=== PATIENT | female | born 1940 | race Caucasian/White ===

== ENCOUNTER → 2016-11-04 | Outpatient (CLI) | payer OTHER ==
[2015-10-30 13:04] VITALS: BP 144/56; PULSE 52
[~2016-11-04] MED LIST: AMLO-114 PO; ANAS1TAB6 PO; ASPI81TA28 PO; ATEN25TA PO; ATEN50TA PO; BND25X PO; MOEX15TA PO; MOEXIPRIL PO; TELM80TA4 PO
[2016-11-04 12:51] VITALS: BP 178/70; PULSE 57; TEMP 36.8; O2SAT 96
--- NOTE | 2016-11-04 14:19 | Radiation Oncology Follow-Up ---
Radiation Oncology Follow-Up Date of Visit Nov 04, 2016. Reason For Visit Annual follow-up Radiation Completion Date APBI - 03/16/15 Diagnosis (1) Malignant neoplasm of upper-outer quadrant of female breast Status: Resolved Onset Date: 10/31/2014 Stage: l (A) Permanent Comment: Abnormal right breast mammogram Status post biopsy 10/31/2014 revealing ductal carcinoma grade 2 Status post partial mastectomy and sentinel lymph node biopsy 11/17/2014 Pathologic stage [id number] Estrogen receptor positive, progesterone receptor negative, HER-2/nicole positive Reexcision 01/05/2015 clear margins After discussion opted against chemotherapy Status post completion of radiation therapy 03/16/2015 received 3850 cGy utilizing accelerated partial breast treatment Last Edited By: Barb Nielson on Apr 26, 2015 15:19 History of Present Illness Ms. Yesenia Mai is a 75 year-old female with a family history of breast cancer. The patient's paternal grandmother had a history of breast cancer as did the patient's aunt and cousin. The patient had been followed with serial screening mammograms. She had a mammogram on 10/07/2004. Her next mammogram was performed after discussion with her family physician on 07/05/2014. This revealed a new lobulated nodule posteriorly in the upper outer aspect of the right breast. Additional imaging studies were recommended. On 07/26/2014 she underwent a targeted ultrasound of the upper outer aspect of the right breast. This showed normal appearing glandular tissue seen throughout the upper outer aspect of the right breast with no evidence of an abnormal nodule. However a short interval follow-up was recommended. Therefore on 10/26/2014 a right diagnostic mammogram was performed. The area of concern in the lateral aspect of the right breast posteriorly at the 10 o'clock position was more conspicuous than on prior examinations. The margins seem more spiculated. The tomosynthesis images confirmed the increased suspicious changes associated with the nodule in the lateral aspect of the right breast. This was given a BI-RADS Category 4, suspicious abnormality and a biopsy was recommended. On 10/31/2014 Dr. Fox performed stereotactic biopsy of the right breast at the 10 o'clock position. 2 tissue samples were obtained. The first biopsy revealed an infiltrative ductal adenocarcinoma grade 2 with no lymphovascular or perineural invasion seen. The second biopsy also revealed an infiltrative ductal adenocarcinoma grade 2 with no lymphovascular or perineural invasion. The estrogen receptors were positive (100%, strong). Progesterone receptors were negative (less than 1% staining). HER-2/nicole overexpression was positive (3 +). This result was positive by FISH analysis. Specimen: [id number]. Case: 15- 1520-S. The patient was seen by Dr. Owen Bauer for evaluation and discussion of the treatment options. After this discussion the patient wished to consider breast conserving therapy. The patient agreed and was planned for surgery on 2014. The patient underwent a sentinel node biopsy and right partial mastectomy. The partial mastectomy specimen confirmed invasive ductal carcinoma Zuri grade 2 out of 3. The tumor measured 0.8 cm on the glass slide. There was no significant amount of DCIS identified. The margins were identified. The invasive ductal carcinoma is present at the superior margin. The invasive carcinoma was greater than 0.5 cm from the remaining margins. There was no lymphovascular or perineural invasion identified. 2 sentinel lymph nodes were identified and no metastatic carcinoma was identified in either of the 2 sentinel nodes on H&E and by brown keratin immunostains. The mass measured grossly a 2 cm however there are extensive biopsy site changes and the sampled material making exact measurements of the tumor difficult. The final stage was therefore a pT1b/c pN0(i-) ER positive [place] negative HER-2/nicole positive. Case: -S. The patient was scheduled for a reexcision of the superior margin performed by Dr. Bauer on 01/05/2015. The right superior margin and deep superior margin revealed benign breast tissue only and was negative for carcinoma. Case: 15- 3674-S. The patient therefore has clear margins. He discussed the potential use of systemic chemotherapy which the patient did not wish to consider. She is considering adjuvant hormonal therapy and has discussed Arimidex with Dr. Bauer. This would be started after the completion of her radiation. She underwent a CT simulation was found a candidate for accelerated partial breast treatment. She was treated from 03/12/2015 to 03/16/2015 and received 3850 cGy. Interim History She's been doing well over this past year. She denies any changes to her breast. She'll have mild discomfort if she lays on the side in bed. She does not give a pain level. She had been on Arimidex. This was stopped due to arthralgias. She saw Dr. Bauer in September and will be seeing him in March. She had a recheck mammogram 07/01/2016. This was bilateral and showed stable changes of the right breast. There were fibroglandular densities and this was given a category be. Recommendation for a right breast mammogram in 6 months. Allergies Coded Allergies: Amlodipine (Verified Allergy, Intermediate, Tongue Swelling, 11/04/16) Simvastatin (Verified Allergy, Intermediate, Gets leg pain , 11/04/16) Lisinopril (Verified Allergy, Unknown, rapid heartbeat, 11/04/16) Rosuvastatin (Verified Allergy, Unknown, makes legs hurt, 11/04/16) Statins (Verified Allergy, Unknown, makes legs hurt, 11/04/16) Vitamin D Analogs (Unverified Allergy, Unknown, D3 - Behind ears get sore , 11/04/16) Uncoded Allergies: Seasonal Allergies (Allergy, Mild, NA, 02/01/15) Clogged up nose/head, post nasal drainage Home Medications Scheduled Aspirin (Aspirin Ec), 81 MG PO DAILY Atenolol (Tenormin), 50 MG PO PM Atenolol (Tenormin), 25 MG PO am Diphenhydramine Hcl (Benadryl *), 25 MG PO Q6HR PRN Moexipril-Hydrochlorothiazide (Moexipril/Hydrochlorothia), 1 TAB PO DAILY Review of Systems Gastrointestinal: Symptoms: WNL GI Comments: Rectal bleeding every once in awhile;Refused colonoscopy; Oral: Symptoms: No Problems Respiratory: Symptoms: WNL Other Respiratory: Cough at times to get phlegm out of throat Urinary: Symptoms: WNL Skin: Symptoms: No Problems Breast: Right Upper Arm Measurement: 32.6 Right Mid Arm Measurement: 27.3 Right Wrist Measurement: 16.9 Left Upper Arm Measurement: 34.4 Left Mid Arm Measurement: 27.4 Left Wrist Measurement: 16.2 Arm Dominence: Right Physical Exam Vital Signs Date Time Temp Pulse Resp B/P Pulse Ox O2 Delivery O2 Flow Rate FiO2 11/04/16 12:51 36.8 57 16 178/70 96 Pain: Pain Location: None Patient Pain Scale: 0 - 10 Initial Pain Intensity: 0.0 Fatigue: None General Appearance: no apparent distress Eyes: normal inspection, EOMI ENT: normal ENT inspection, hearing grossly normal Neck: no adenopathy Respiratory/Chest: lungs clear, no respiratory distress, no accessory muscle use Breast: Breast examination reveals well-healed incisions of the right breast. There are fibrous changes around the airway incision. There are no masses and no axillary adenopathy. There is slight tenderness to palpation in the area of the incision of the breast. She has no skin retractions and no nipple changes. Using the [place] score cosmesis she has a good outcome. Left breast reveals a palpable lipoma of the upper inner portion of the breast. There are no suspicious masses or tenderness and no axillary adenopathy. Cardiovascular: regular rate, rhythm, no gallop, no murmur Abdomen: non tender, soft Extremities: no pedal edema Neurologic/Psychiatric: no motor/sensory deficits, alert, normal mood/affect Skin: warm/dry Lymphatic: no adenopathy Additional Studies Mammography as reviewed above from [facility] performed on 2015. Assessment & Plan Plan: Continue with scheduled mammography. She has a mammogram of the right breast in January. She'll be seeing Dr. Bauer in March. Continue regular follow- up with her primary care provider. We asked her to return to our office in 1 year. She may call if she has a questions or concerns in the interim. She states that she has multiple areas of lipomas and finds it difficult to do breast self-exam. She'll call if she notes any areas of concern. Total Time In Follow-Up I spent 20 minutes speaking to the patient performing examination. I spent 15 minutes reviewing information in completing this note. Copy To Owen Bauer M.D.; Farrah Garcia M.D. Problem Qualifiers (1) Malignant neoplasm of upper-outer quadrant of female breast: Laterality: right Qualified Codes: C50.411 - Malignant neoplasm of upper- outer quadrant of right female breast
== END | disposition home or self-care (01) ==
LOC: C.ONC 12:29
PROVIDERS: ATTEND Radiology Radiation Oncology
DX: Z08 Encounter for follow-up examination after completed treatment for malignant neoplasm (principal); Z92.3 Personal history of irradiation; Z85.3 Personal history of malignant neoplasm of breast

== ENCOUNTER → 2017-11-03 | Outpatient (CLI) | payer OTHER ==
[2015-10-30 13:04] VITALS: BP 144/56; PULSE 52
[~2017-11-03] MED LIST changes: -AMLO-114 PO; -ANAS1TAB6 PO; -MOEXIPRIL PO; -TELM80TA4 PO
[2017-11-03 12:57] VITALS: BP 195/72; PULSE 60; TEMP 36.9; O2SAT 97
--- NOTE | 2017-11-03 16:36 | Radiation Oncology Follow-Up ---
Radiation Oncology Follow-Up Date of Visit Nov 03, 2017. Reason For Visit Annual follow-up Radiation Completion Date APBI 03/16/15 Diagnosis (1) Malignant neoplasm of upper-outer quadrant of female breast Status: Resolved Onset Date: 10/31/2014 Histology Subtype: ductal Stage: l (A) Permanent Comment: Abnormal right breast mammogram Status post biopsy 10/31/2014 revealing ductal carcinoma grade 2 Status post partial mastectomy and sentinel lymph node biopsy 11/17/2014 Pathologic stage [id number] Estrogen receptor positive, progesterone receptor negative, HER-2/nicole positive Reexcision 01/05/2015 clear margins After discussion opted against chemotherapy Status post completion of radiation therapy 03/16/2015 received 3850 cGy utilizing accelerated partial breast treatment Last Edited By: Barb Nielson on Apr 26, 2015 15:19 History of Present Illness Ms. Yesenia Mai has a family history of breast cancer. The patient's paternal grandmother had a history of breast cancer as did the patient's aunt and cousin. The patient had been followed with serial screening mammograms. She had a mammogram on 10/07/2004. Her next mammogram was performed after discussion with her family physician on 07/05/2014. This revealed a new lobulated nodule posteriorly in the upper outer aspect of the right breast. Additional imaging studies were recommended. On 07/26/2014 she underwent a targeted ultrasound of the upper outer aspect of the right breast. This showed normal appearing glandular tissue seen throughout the upper outer aspect of the right breast with no evidence of an abnormal nodule. However a short interval follow-up was recommended. Therefore on 10/26/2014 a right diagnostic mammogram was performed. The area of concern in the lateral aspect of the right breast posteriorly at the 10 o'clock position was more conspicuous than on prior examinations. The margins seem more spiculated. The tomosynthesis images confirmed the increased suspicious changes associated with the nodule in the lateral aspect of the right breast. This was given a BI-RADS Category 4, suspicious abnormality and a biopsy was recommended. On 10/31/2014 Dr. Fox performed stereotactic biopsy of the right breast at the 10 o'clock position. 2 tissue samples were obtained. The first biopsy revealed an infiltrative ductal adenocarcinoma grade 2 with no lymphovascular or perineural invasion seen. The second biopsy also revealed an infiltrative ductal adenocarcinoma grade 2 with no lymphovascular or perineural invasion. The estrogen receptors were positive (100%, strong). Progesterone receptors were negative (less than 1% staining). HER-2/nicole overexpression was positive (3 +). This result was positive by FISH analysis. Specimen: [id number]. Case: 15- 1520-S. The patient was seen by Dr. Owen Bauer for evaluation and discussion of the treatment options. After this discussion the patient wished to consider breast conserving therapy. The patient agreed and was planned for surgery on 2014. The patient underwent a sentinel node biopsy and right partial mastectomy. The partial mastectomy specimen confirmed invasive ductal carcinoma Zuri grade 2 out of 3. The tumor measured 0.8 cm on the glass slide. There was no significant amount of DCIS identified. The margins were identified. The invasive ductal carcinoma is present at the superior margin. The invasive carcinoma was greater than 0.5 cm from the remaining margins. There was no lymphovascular or perineural invasion identified. 2 sentinel lymph nodes were identified and no metastatic carcinoma was identified in either of the 2 sentinel nodes on H&E and by brown keratin immunostains. The mass measured grossly a 2 cm however there are extensive biopsy site changes and the sampled material making exact measurements of the tumor difficult. The final stage was therefore a pT1b/c pN0(i-) ER positive [place] negative HER-2/nicole positive. Case: -S. The patient was scheduled for a reexcision of the superior margin performed by Dr. Bauer on 01/05/2015. The right superior margin and deep superior margin revealed benign breast tissue only and was negative for carcinoma. Case: 15- 3674-S. The patient therefore has clear margins. He discussed the potential use of systemic chemotherapy which the patient did not wish to consider. She is considering adjuvant hormonal therapy and has discussed Arimidex with Dr. Bauer. This would be started after the completion of her radiation. She underwent a CT simulation was found a candidate for accelerated partial breast treatment. She was treated from 03/12/2015 to 03/16/2015 and received 3850 cGy. Interim History She has been doing well over this past year. She denies any changes to her breast. She's noted no masses or tenderness and no change of the axilla. She' s had no swelling of her arm. She is up-to-date on mammography. She had a mammogram at [facility] on 07/06/2017. There was no significant interval change in there were no changes to suggest malignancy. A follow-up of the right breast was recommended in 6 months. This was a bilateral digital diagnostic mammogram. She currently does not have a follow- up mammogram scheduled. Allergies Coded Allergies: Amlodipine (Verified Allergy, Intermediate, Tongue Swelling, 11/04/16) Simvastatin (Verified Allergy, Intermediate, Gets leg pain , 11/04/16) Lisinopril (Verified Allergy, Unknown, rapid heartbeat, 11/04/16) Rosuvastatin (Verified Allergy, Unknown, makes legs hurt, 11/04/16) Statins (Verified Allergy, Unknown, makes legs hurt, 11/04/16) Vitamin D Analogs (Unverified Allergy, Unknown, D3 - Behind ears get sore , 11/04/16) Uncoded Allergies: Seasonal Allergies (Allergy, Mild, NA, 02/01/15) Clogged up nose/head, post nasal drainage Home Medications Scheduled Aspirin (Aspirin Ec), 81 MG PO DAILY Atenolol (Tenormin), 50 MG PO PM Diphenhydramine Hcl (Benadryl *), 25 MG PO Q6HR PRN Moexipril-Hydrochlorothiazide (Moexipril/Hydrochlorothia), 1 TAB PO DAILY Review of Systems Gastrointestinal: Symptoms: Rectal Bleeding GI Comments: Rectal spotting that she relates to hemorrhoids; Oral: Symptoms: No Problems Respiratory: Symptoms: WNL Other Respiratory: Cough at times to get phlegm out of throat Urinary: Symptoms: WNL Skin: Symptoms: No Problems Breast: Right Upper Arm Measurement: 36.3 Right Mid Arm Measurement: 28.3 Right Wrist Measurement: 16.5 Left Upper Arm Measurement: 36.8 Left Mid Arm Measurement: 29.0 Left Wrist Measurement: 16.8 Arm Dominence: Right Physical Exam Blood pressure was rechecked and was 182/79. Vital Signs Date Time Temp Pulse Resp B/P (MAP) Pulse Ox O2 Delivery O2 Flow Rate FiO2 11/03/17 12:57 36.9 60 16 195/72 97 ECOG Performance Status: 0 Fatigue: None General Appearance: no apparent distress Eyes: normal inspection, EOMI ENT: normal ENT inspection, hearing grossly normal Neck: no adenopathy, thyroid normal Respiratory/Chest: lungs clear, no respiratory distress, no accessory muscle use Breast: Breast examination reveals an oval area of telangiectasia in the lower outer portion of right breast. There is also underlying fibrous changes. There are no distinct masses. There is no tenderness and no change of the axilla. Using the [place] score cosmesis she has a good outcome. The left breast showed no masses or tenderness and no axillary adenopathy. Cardiovascular: regular rate, rhythm, no gallop, no murmur Extremities: no pedal edema Neurologic/Psychiatric: no motor/sensory deficits, alert, normal mood/affect Skin: warm/dry Pain Management Patient Reports Pain: Yes Patient Preferred Pain Scale: 0 - 10 Initial Pain Intensity: 5.0 Pain Management Plan The pain she is having is in her hip. She plans to take [id number] analgesics. If this does not improve she'll see her primary care physician. She does not require pain management through our office. Laboratory Laboratory Results: not applicable Pathology Pathology Results: not applicable Imaging Imaging Studies: were reviewed Imaging Comments Reviewed in the interim history. Assessment & Plan Plan: Continue regular follow-up with her primary care physician. She had been followed by Dr. Bauer who is now retired. She does not plan to schedule an appointment through their office. She was not scheduled for her next mammogram. This will be set up. An order was written. She'll continue to have her mammograms at [facility]. We asked her to remove return to our office in 1 year. She will call if she has any questions or concerns in the interim. I've asked her to monitor her blood pressure twice daily at home. She we'll then call her primary care physician to review the results of the blood pressure readings. Total Time In Follow-Up I spent 20 minutes speaking to the patient and performing examination. I spent 15 minutes reviewing information and completeness note. [place] Copy To Farrah Garcia M.D. Problem Qualifiers (1) Malignant neoplasm of upper-outer quadrant of female breast: Estrogen receptor status: positive Laterality: right Qualified Codes: C50.411 - Malignant neoplasm of upper-outer quadrant of right female breast; Z17.0 - Estrogen receptor positive status [ER+]
== END | disposition home or self-care (01) ==
LOC: C.ONC 12:00
PROVIDERS: ATTEND Physician Assistant Medical
DX: Z08 Encounter for follow-up examination after completed treatment for malignant neoplasm (principal); Z92.3 Personal history of irradiation; Z85.3 Personal history of malignant neoplasm of breast